=== PATIENT | female | born 2000 | race Caucasian/White ===

== ENCOUNTER 2022-01-16 14:59 | Emergency (ER) | payer SELFPAY ==
[~2022-01-16] VITALS: Ht 152.4 cm; Wt 81.8 kg
[2022-01-16 15:20] VITALS: TEMP 98.4
[2022-01-16] MEDS ORDERED: BACTRIM DS 8001 TAB PO (16:20)
[2022-01-16 16:36] VITALS: BP 147/78; PULSE 73
== END 2022-01-16 16:39 | disposition home or self-care (01) ==
LOC: COL.ER 14:59
DX: L72.9 Follicular cyst of the skin and subcutaneous tissue, unspecified (principal)

== ENCOUNTER 2022-01-21 10:02 | Emergency (ER) | payer SELFPAY ==
[~2022-01-21] VITALS: Ht 152.4 cm; Wt 81.8 kg
[~2022-01-21 10:02] MED LIST: BACTRIM DS 8001 TAB PO
[2022-01-21 10:20] VITALS: TEMP 98.6
[2022-01-21 11:52] VITALS: BP 136/88; PULSE 75
== END 2022-01-21 11:56 | disposition home or self-care (01) ==
LOC: COL.ER 10:02
DX: L72.3 Sebaceous cyst (principal); Z28.310 Unvaccinated for COVID-19

== ENCOUNTER 2022-09-03 05:13 | Emergency (ER) | payer SELFPAY ==
[~2022-09-03] VITALS: Ht 152.4 cm; Wt 81.8 kg
[2022-09-03 05:20] VITALS: BP 134/97; TEMP 99.4
[2022-09-03 06:40] VITALS: PULSE 101
== END 2022-09-03 06:48 | disposition home or self-care (01) ==
LOC: COL.ER 05:13
DX: J10.1 Influenza due to other identified influenza virus with other respiratory manifestations (principal); Z20.822 Contact with and (suspected) exposure to COVID-19

== ENCOUNTER 2022-10-08 07:29 | Emergency (ER) | payer SELFPAY ==
[~2022-10-08] VITALS: Ht 152.4 cm; Wt 81.8 kg
[2022-10-08 07:41] VITALS: TEMP 98.3
[2022-10-08 08:16] LABS: STREP SCREEN NEGATIVE
[2022-10-08 09:04] LABS: MONOSCREEN NEGATIVE
[2022-10-08 09:27] VITALS: BP 137/84; PULSE 92
== END 2022-10-08 09:27 | disposition home or self-care (01) ==
LOC: COL.ER 07:29
PROVIDERS: Emergency Medicine
DX: J03.90 Acute tonsillitis, unspecified (principal); Z20.822 Contact with and (suspected) exposure to COVID-19
CPT/HCPCS: J8540

== ENCOUNTER 2022-10-10 04:19 | Emergency (ER) | payer SELFPAY ==
[~2022-10-10] VITALS: Ht 165.1 cm; Wt 77.3 kg
[2022-10-10 04:26] VITALS: BP 133/85; PULSE 118; TEMP 100.7
[2022-10-11] MEDS ORDERED: DOXYCYCLINE 10100 MG PO (18:55)
== END 2022-10-10 05:11 | disposition home or self-care (01) ==
LOC: COL.ER 04:19
DX: J02.8 Acute pharyngitis due to other specified organisms (principal); B97.89 Other viral agents as the cause of diseases classified elsewhere
CPT/HCPCS: J1100

== ENCOUNTER 2022-10-11 18:00 | Emergency (ER) | payer SELFPAY ==
[~2022-10-11] VITALS: Ht 152.4 cm; Wt 79.5 kg
[2022-10-11 18:16] VITALS: TEMP 101.7
[2022-10-11] MEDS ORDERED: DOXYCYCLINE 10100 MG PO (18:55)
[2022-10-11 19:00] VITALS: BP 122/81; PULSE 88
== END 2022-10-11 19:13 | disposition home or self-care (01) ==
LOC: COL.ER 18:00
DX: J02.9 Acute pharyngitis, unspecified (principal)
CPT/HCPCS: J0561

== ENCOUNTER 2022-10-12 07:00 | Emergency (ER) | payer SELFPAY ==
[~2022-10-12] VITALS: Ht 152.4 cm; Wt 79.5 kg
[~2022-10-12 07:00] MED LIST changes: +DOXYCYCLINE 10100 MG PO
[2022-10-12 07:05] VITALS: TEMP 98.7
[2022-10-12 07:39] VITALS: BP 124/85; PULSE 98
== END 2022-10-12 07:39 | disposition home or self-care (01) ==
LOC: COL.ER 07:00
DX: J02.9 Acute pharyngitis, unspecified (principal); Z28.310 Unvaccinated for COVID-19
CPT/HCPCS: J0696; J1100

== ENCOUNTER 2023-12-24 08:34 | Emergency (ER) | payer OTHER ==
[~2023-12-24] VITALS: Ht 152.4 cm; Wt 79.5 kg
[2023-12-24 08:38] VITALS: BP 133/77; PULSE 77; TEMP 98.5
[2023-12-24 09:11] LABS: PH 8.5 (5.0-8.5); URINE APPEARANCE CLOUDY (CLEAR/HAZY); URINE BLOOD 3+ (NEGATIVE); URINE COLOR YELLOW (YELLOW); URINE GLUCOSE NEGATIVE (NEGATIVE); URINE KETONE NEGATIVE (NEGATIVE); URINE NITRATE NEGATIVE (NEGATIVE); URINE PROTEIN(semi-quant) 1+ (NEGATIVE); URINE UROBILINOGEN 0.2 E.U/dL (0.2-1.0)
[2023-12-24 09:27] LABS: COLLECTION METHOD CLEAN CATCH
[2023-12-24] MEDS ORDERED: CEFTIN 250250 MG/TAB PO (09:44)
== END 2023-12-24 09:50 | disposition home or self-care (01) ==
LOC: COL.ER 08:34
PROVIDERS: Family Medicine
DX: N30.00 Acute cystitis without hematuria (principal)

== ENCOUNTER 2024-01-05 15:50 | Emergency (ER) | payer OTHER ==
[~2024-01-05] VITALS: Ht 154.9 cm; Wt 79.5 kg
[~2024-01-05 15:50] MED LIST changes: +CEFTIN 250250 MG/TAB PO
[2024-01-05 16:06] VITALS: TEMP 98.2
[2024-01-05 16:42] LABS: COLLECTION METHOD CLEAN CATCH
[2024-01-05 16:49] LABS: URINE APPEARANCE CLEAR (CLEAR/HAZY); URINE BLOOD TRACE (NEGATIVE); URINE COLOR Dark Yellow (YELLOW); URINE GLUCOSE NEGATIVE (NEGATIVE); URINE KETONE NEGATIVE (NEGATIVE); URINE NITRATE POSITIVE (NEGATIVE); URINE PROTEIN(semi-quant) NEGATIVE (NEGATIVE)
[2024-01-05] MEDS ORDERED: MACROBID 1100 MG/CAP PO (16:58)
[2024-01-05 17:13] VITALS: BP 116/78; PULSE 78
== END 2024-01-05 17:10 | disposition home or self-care (01) ==
LOC: COL.ER 15:50
PROVIDERS: Physician Assistant
DX: N39.0 Urinary tract infection, site not specified (principal)